=== PATIENT | female | born 1995 | race Two or more races ===

== ENCOUNTER 2022-02-28 09:26 | Emergency (ER) | payer MEDICAID ==
[2022-02-28] MEDS ORDERED: pseudoephedrine 30mg tablet PO ONE (10:10)
[2022-02-28 10:11] VITALS: BP 110/62
== END 2022-02-28 10:36 | disposition home or self-care (01) ==
LOC: ER 09:27
DX: J30.9 Allergic rhinitis, unspecified (principal)
CPT/HCPCS: 99283